=== PATIENT | female | born 1990 | race Caucasian/White ===

== ENCOUNTER 2025-08-08 01:58 | Emergency (ER) | payer MEDICAID ==
[~2025-08-08] VITALS: Ht 162.6 cm; Wt 85.0 kg
[~2025-08-08 01:58] MED LIST changes: -BUPIVACAINE HCL/PF 0.5% (5MG/ML) 10ML ONE; -FENTANYL CITRATE/PF 50MCG/ML 2ML VIAL ONE; -GLYCOPYRROLATE 0.2 MG/ML 2ML VIAL ONE; -LACTATED RINGERS 1,000 ML IV SCH; -METOCLOPRAMIDE HCL 10MG/2ML VIAL ONE; -MIDAZOLAM HCL 2 MG/2 ML VIAL ONE; -NEOSTIGMINE METHYLSULFATE 1MG/ML 10 ML VIAL ONE; -ONDANSETRON HCL 4MG/2ML INJ ONE; -PROPOFOL 200MG/20ML VIAL IV ONE; -ROCURONIUM BROMIDE 10MG/ML VIAL 5ML IV ONE; -SKIN ADHESIVE 0.7 GM EA TOP ONE
[2025-08-08 02:03] VITALS: TEMP 36.8; O2SAT 98
[2025-08-08 02:47] LABS: CLARITY URINE CLEAR (CLEAR); COLOR URINE YELLOW (YELLOW); GLUCOSE URINE NEGATIVE (NEGATIVE); KETONES URINE 3+ (NEGATIVE); LEUKOCYTE ESTERASE URINE NEGATIVE (NEGATIVE); NITRITE URINE NEGATIVE (NEGATIVE); OCCULT BLOOD URINE 2+ (NEGATIVE); PH URINE 5.5 (4.5-8.0); PROTEIN URINE TRACE (NEGATIVE); SPECIFIC GRAVITY URINE 1.022 (1.005-1.030); UROBILINOGEN URINE 0.2 E.U./dL (0.2-1.0)
[2025-08-08 03:53] LABS: BASOPHILS % 0.7 % (0.0-2.0); EOSINOPHILS % 1.5 % (0.0-5.0); HEMATOCRIT. 35.9 % (36.0-48.0); HEMOGLOBIN. 11.5 g/dL (12.0-16.0); LYMPHOCYTES % 19.3 % (20.0-50.0); MEAN PLATELET VOLUME 9.3 fl (7.4-10.4); MONOCYTES % 4.6 % (2.0-8.0); NEUTROPHILS % 73.9 % (40.0-76.0); PLATELET 360 x1000/uL (130-400); RED BLOOD CELL COUNT 4.57 mill/uL (4.2-5.4); RED CELL DISTRIBUTION WIDTH 14.9 % (11.6-14.6)
[2025-08-08 04:04] LABS: CREATININE 0.7 mg/dL (0.6-1.0); UREA NITROGEN BLOOD 10 mg/dL (9-23)
[2025-08-08 04:06] LABS: ASPARTATE AMINOTRANSFERASE 18 IU/L (<34); BILIRUBIN DIRECT 0.2 mg/dL (<=3.0)
[2025-08-08 04:07] LABS: BILIRUBIN TOTAL 0.6 mg/dL (0.1-1.0); PROTEIN TOTAL 7.2 g/dL (6.0-8.3)
[2025-08-08] MEDS: HYDROCODONE/ACETAMINOPHEN 5/325MG TABLET PO ONE (05:26)
[2025-08-08 06:10] LABS: SQUAMOUS EPITHELIAL CELL URINE FEW /lpf (RARE/1+)
[2025-08-08 06:11] LABS: BACTERIA URINE TRACE; RBC URINE 0-2 /hpf (0-2); WBC URINE 0-2 /hpf (0-2)
[2025-08-08 06:12] VITALS: BP 126/72; PULSE 65; RESP 14; O2SAT 100
== END 2025-08-08 06:19 | disposition home or self-care (01) ==
LOC: ER 01:58
DX: K80.20 Calculus of gallbladder without cholecystitis without obstruction (principal); D64.9 Anemia, unspecified; R31.9 Hematuria, unspecified
CPT/HCPCS: 36415; 80048; 80076; 81003; 81025; 85025; 99283

== ENCOUNTER → 2025-08-08 | Day surgery (SDC) | payer MEDICAID ==
[~2025-08-08] VITALS: Ht 162.6 cm; Wt 77.6 kg
[~2025-08-08] MED LIST: BUPIVACAINE HCL/PF 0.5% (5MG/ML) 10ML ONE; FAMO20TA8 PO; FENTANYL CITRATE/PF 50MCG/ML 2ML VIAL ONE; GLYCOPYRROLATE 0.2 MG/ML 2ML VIAL ONE; LACTATED RINGERS 1,000 ML IV SCH; METOCLOPRAMIDE HCL 10MG/2ML VIAL ONE; MIDAZOLAM HCL 2 MG/2 ML VIAL ONE; NEOSTIGMINE METHYLSULFATE 1MG/ML 10 ML VIAL ONE; ONDANSETRON HCL 4MG/2ML INJ ONE; PROPOFOL 200MG/20ML VIAL IV ONE; ROCURONIUM BROMIDE 10MG/ML VIAL 5ML IV ONE; SKIN ADHESIVE 0.7 GM EA TOP ONE
[2025-08-08 07:31] LABS: UCG KIT EXPIRATION DATE 3-11-27; UCG KIT LOT# 0000982192; UCG SCREEN NEGATIVE
[2025-08-08] MEDS: FENTANYL CITRATE/PF 50MCG/ML 2ML VIAL IV PRN (10:02)
[2025-08-08 10:54] VITALS: BP 132/78; PULSE 72; RESP 19
[2025-08-08] MEDS: ACETAMINOPHEN WITH CODEINE 300/30MG TABLET PO NR (10:54)
[2025-08-08] MEDS: ONDANSETRON HCL 4MG/2ML INJ IV PRN (12:06)
== END | disposition home or self-care (01) ==
LOC: OR 06:21
PROVIDERS: ATTEND Surgery
DX: K80.10 Calculus of gallbladder with chronic cholecystitis without obstruction (principal); K82.1 Hydrops of gallbladder; K21.9 Gastro-esophageal reflux disease without esophagitis; Z79.899 Other long term (current) drug therapy; Z98.890 Other specified postprocedural states
CPT/HCPCS: 47562; 88304; 81025; J3010; J0665; J3490 ×2; J2765; J2250; J2405; J2704; J7030; J2710; A4217